=== PATIENT | female | born 1995 | race Caucasian/White ===

== ENCOUNTER 2023-05-02 20:07 | Emergency (ER) | payer BC ==
[2023-05-02 20:56] VITALS: BP 119/63; PULSE 75; RESP 18; TEMP 98.9; BMI 33.6
[2023-05-02] MEDS ORDERED: ALBUTEROL SO4 2.5/IPRATROPIUM 0.5 INH SOL 3 ML VIAL.NEB. NEB ONE (23:18)
[2023-05-02] MEDS: ALBUTEROL SO4 2.5/IPRATROPIUM 0.5 INH SOL 3 ML VIAL.NEB. NEB ONE (23:20)
[2023-05-03] MEDS ORDERED: AZITHROMYCIN 500 MG TABLET ONE (00:09)
== END 2023-05-03 00:19 | disposition home or self-care (01) ==
LOC: FER 20:07
PROC: 3E0F7GC Introduction of Other Therapeutic Substance into Respiratory Tract, Via Natural or Artificial Opening (ICD-10-PCS; principal; 2023-05-02)
DX: R05.9 Cough, unspecified (principal); R50.9 Fever, unspecified; J20.9 Acute bronchitis, unspecified; Z20.822 Contact with and (suspected) exposure to COVID-19
CPT/HCPCS: 0241U-QW; 99283-25